=== PATIENT | female | born 1990 ===

== ENCOUNTER 2018-04-16 21:05 | Observation (INO) | payer MEDICAID ==
[2018-04-16] MEDS ORDERED: ACETAMINOPHEN 325 MG TAB PO ONE (22:15)
--- NOTE | 2018-04-17 03:40 | GHP ---
[f rep st] PREOP HISTORY AND PHYSICAL DATE OF ADMISSION: 04/16/2018 NST INTERPRETATION: The patient is a 27-year-old, G3, P2, who at 33 weeks gestation, patient of [facility], who came in for symptoms of a cold. I was not in house. She was evaluated and she was sent abdullahi e. Her NST had a baseline of 150s to 160s with accelerations, no decelerations. Moderate variabilit y, reactive NST appropriate for gestational age. Patient was discharged to home. Instructed to foll ow up with her provider tomorrow morning. Labor precautions and kick counts were reviewed with the p atient by the nurse. /[id number]/MODL
== END 2018-04-16 23:36 | disposition home or self-care (01) ==
LOC: FLD 21:05
PROVIDERS: ADMIT Obstetrics & Gynecology; ATTEND Obstetrics & Gynecology
DX: R51 Headache (principal); M54.9 Dorsalgia, unspecified; Z3A.33 33 weeks gestation of pregnancy
CPT/HCPCS: 59025; G0378